=== PATIENT | female | born 1955 | race Caucasian/White ===

== ENCOUNTER → 2016-12-28 | Outpatient (CLI) | payer OTHER ==
[~2016-12-28] MED LIST: ASPIRIN81 M1 PO; ATORVASTATIN CA20 M1 PO; BENADRYL ALLERG25 M5 PO; FLUTICASON0.05 MG/AC NAS; OMEPRAZOLE D/R20 MG PO; OSPHENA60 M1 PO; PERCOCET 325 MG1 TA5 PO; VENLAFAXINE HYD75 M3 PO; ZOFRAN4 MG PO
[2016-12-28 15:56] LABS: BILIRUBIN NEGATIVE (NEGATIVE); BLOOD TRACE-INTACT (NEGATIVE); CLARITY CLEAR (CLEAR); COLOR YELLOW (YELLOW); GLUCOSE NEGATIVE (NEGATIVE); KETONE NEGATIVE (NEGATIVE); LEUKO ESTERASE NEGATIVE (NEGATIVE); NITRITE NEGATIVE (NEGATIVE); PH 5.5 (5.0-9.0); SPECIFIC GRAVITY <= 1.005 (1.005-1.030); UROBILINOGEN 0.2 E.U./dl (0.2-1.0)
[2016-12-28 15:57] LABS: BASO # 0.1 10*3/uL (0.0-0.1); BASO % 0.8 % (0.0-1.0); EOS # 0.1 10*3/uL (0.0-0.4); EOS % 1.2 % (1.0-4.0); HEMATOCRIT 37.2 % (37.0-47.0); HEMOGLOBIN 11.6 g/dl (12.0-16.0); LYMPH # 3.2 10*3/uL (1.3-4.4); LYMPH % 38.1 % (27.0-41.0); MEAN CELL VOLUME 89.6 fl (81.0-99.0); MEAN CORPUSCULAR HGB CONC 31.2 g/dl (33.0-37.0); MEAN PLATELET VOLUME 10.6 fl (9.6-12.3); MONO # 0.9 10*3/uL (0.1-1.0); MONO % 11.3 % (3.0-9.0); NEUT % 48.5 % (47.0-73.0); PLATELET COUNT AUTOMATED 364 10*3/uL (130-400); RED BLOOD COUNT 4.15 10*6/uL (4.10-5.10); RED CELL DISTRI WIDTH 15.9 % (0-14.5); WHITE BLOOD COUNT 8.3 10*3/uL (4.8-10.8)
[2016-12-28 16:06] LABS: BACTERIA 1+; RBC 0-2 rbc/hpf (0-2)
[2016-12-28 16:28] LABS: ALBUMIN 3.7 gm/dl (3.1-4.5); BUN 10 mg/dl (7-24); CHLORIDE 104 mmol/L (98-107); CHOLESTEROL 192 mg/dL (<200); CREATININE 0.81 mg/dL (0.55-1.02); GAMMA GLUTAMYL TRANSPEPTIDASE 27 U/L (5-55); SGOT/AST 28 IU/L (3-35); SGPT/ALT 22 U/L (12-78); SODIUM 137 mmol/L (136-145); TOTAL PROTEIN 7.3 gm/dL (6.4-8.2); TRIGLYCERIDES 125 mg/dl (<150); VLDL CHOLESTEROL 25 mg/dL (6-40)
[2016-12-28 16:34] LABS: VITAMIN D, 25-HYDROXY 18.8 ng/mL (30-100)
[2016-12-28 16:35] LABS: ALKALINE PHOSPHATASE 107 U/L (45-117); CPK 256 U/L (26-192); HDL CHOLESTEROL 44 mg/dl (40-60); LDL CHOLESTEROL 123 mg/dL (9-159); THYROID STIM HORMONE (HS) 0.923 uIU/ml (0.358-4.75)
== END | disposition home or self-care (01) ==
LOC: LAB 15:07
PROVIDERS: Family Medicine
DX: R53.83 Other fatigue (principal); R79.89 Other specified abnormal findings of blood chemistry; E55.9 Vitamin D deficiency, unspecified

== ENCOUNTER → 2017-10-02 | Outpatient (CLI) | payer OTHER ==
[2017-10-02 13:14] LABS: BILIRUBIN NEGATIVE (NEGATIVE); BLOOD TRACE-INTACT (NEGATIVE); CLARITY CLEAR (CLEAR); COLOR YELLOW (YELLOW); GLUCOSE NEGATIVE (NEGATIVE); KETONE NEGATIVE (NEGATIVE); LEUKO ESTERASE NEGATIVE (NEGATIVE); NITRITE NEGATIVE (NEGATIVE); SPECIFIC GRAVITY <= 1.005 (1.005-1.030); UROBILINOGEN 0.2 E.U./dl (0.2-1.0)
[2017-10-02 13:16] LABS: BASO # 0.1 10*3/uL (0.0-0.1); BASO % 0.8 % (0.0-1.0); EOS # 0.1 10*3/uL (0.0-0.4); EOS % 1.1 % (1.0-4.0); HEMATOCRIT 37.6 % (37.0-47.0); HEMOGLOBIN 11.6 g/dl (12.0-16.0); LYMPH % 33.4 % (27.0-41.0); MEAN CELL VOLUME 88.3 fl (81.0-99.0); MEAN CORPUSCULAR HGB 27.2 pg (27.0-31.0); MEAN CORPUSCULAR HGB CONC 30.9 g/dl (33.0-37.0); MEAN PLATELET VOLUME 10.9 fl (9.6-12.3); MONO % 10.8 % (3.0-9.0); NEUT # 4.8 10*3/uL (2.3-7.9); NEUT % 53.6 % (47.0-73.0); PLATELET COUNT AUTOMATED 361 10*3/uL (130-400); RED BLOOD COUNT 4.26 10*6/uL (4.10-5.10); RED CELL DISTRI WIDTH 17.2 % (0-14.5); WHITE BLOOD COUNT 8.9 10*3/uL (4.8-10.8)
[2017-10-02 13:21] LABS: BACTERIA 1+
[2017-10-02 13:47] LABS: ALBUMIN 3.7 gm/dl (3.1-4.5); ALKALINE PHOSPHATASE 105 U/L (45-117); BUN 9 mg/dl (7-24); CHLORIDE 108 mmol/L (98-107); CHOLESTEROL 190 mg/dL (<200); CPK 138 U/L (26-192); CREATININE 0.75 mg/dL (0.55-1.02); GAMMA GLUTAMYL TRANSPEPTIDASE 21 U/L (5-55); HDL CHOLESTEROL 38 mg/dl (40-60); LDL CHOLESTEROL 117 mg/dL (9-159); POTASSIUM 3.6 mmol/L (3.5-5.1); SGOT/AST 22 IU/L (3-35); SGPT/ALT 20 U/L (12-78); SODIUM 140 mmol/L (136-145); TOTAL PROTEIN 7.3 gm/dL (6.4-8.2); TRIGLYCERIDES 174 mg/dl (<150); VLDL CHOLESTEROL 35 mg/dL (6-40)
== END | disposition home or self-care (01) ==
LOC: LAB 12:39
PROVIDERS: Family Medicine
DX: R53.83 Other fatigue (principal); E78.00 Pure hypercholesterolemia, unspecified; R79.89 Other specified abnormal findings of blood chemistry

== ENCOUNTER → 2018-04-15 | Outpatient (CLI) | payer OTHER ==
[2018-04-15 14:34] LABS: BASO # 0.1 10*3/uL (0.0-0.1); BASO % 0.6 % (0.0-1.0); EOS # 0.1 10*3/uL (0.0-0.4); EOS % 0.9 % (1.0-4.0); HEMATOCRIT 35.5 % (37.0-47.0); LYMPH # 2.7 10*3/uL (1.3-4.4); LYMPH % 31.2 % (27.0-41.0); MEAN CELL VOLUME 85.3 fl (81.0-99.0); MEAN CORPUSCULAR HGB 26.4 pg (27.0-31.0); MEAN PLATELET VOLUME 10.9 fl (9.6-12.3); MONO # 0.9 10*3/uL (0.1-1.0); PLATELET COUNT AUTOMATED 364 10*3/uL (130-400); RED BLOOD COUNT 4.16 10*6/uL (4.10-5.10); RED CELL DISTRI WIDTH 18.1 % (0-14.5); RETICULOCYTE % 1.52 % (0.50-2.50); WHITE BLOOD COUNT 8.7 10*3/uL (4.8-10.8)
[2018-04-15 14:58] LABS: ALBUMIN 3.8 gm/dl (3.1-4.5); ALKALINE PHOSPHATASE 99 U/L (45-117); BUN 4 mg/dl (7-24); CHLORIDE 108 mmol/L (98-107); CHOLESTEROL 183 mg/dL (<200); GAMMA GLUTAMYL TRANSPEPTIDASE 21 U/L (5-55); HDL CHOLESTEROL 45 mg/dl (40-60); IRON 22 ug/dL (50-170); LDL CHOLESTEROL 109 mg/dL (9-159); POTASSIUM 3.5 mmol/L (3.5-5.1); SGOT/AST 21 IU/L (3-35); SGPT/ALT 22 U/L (12-78); SODIUM 142 mmol/L (136-145); T3 UPTAKE 34 % (31-39); THYROXINE (T4) TOTAL 7.5 ug/dl (4.8-13.9); TOTAL PROTEIN 7.3 gm/dL (6.4-8.2); TRIGLYCERIDES 146 mg/dl (<150); VLDL CHOLESTEROL 29 mg/dL (6-40)
[2018-04-15 15:05] LABS: CPK 141 U/L (26-192); VITAMIN D, 25-HYDROXY 11.2 ng/mL (30-100)
[2018-04-15 15:06] LABS: FERRITIN 6.2 ng/mL (10.0-291.0)
[2018-04-15 16:06] LABS: BILIRUBIN NEGATIVE (NEGATIVE); BLOOD NEGATIVE (NEGATIVE); CLARITY CLEAR (CLEAR); COLOR YELLOW (YELLOW); GLUCOSE NEGATIVE (NEGATIVE); KETONE NEGATIVE (NEGATIVE); LEUKO ESTERASE NEGATIVE (NEGATIVE); NITRITE NEGATIVE (NEGATIVE); SPECIFIC GRAVITY <= 1.005 (1.005-1.030); UROBILINOGEN 0.2 E.U./dl (0.2-1.0)
[2018-04-15 16:19] LABS: BACTERIA 1+
[2018-04-15 16:20] LABS: WBC 0-2 wbc/hpf (0-5)
== END | disposition home or self-care (01) ==
LOC: LAB 13:33
PROVIDERS: Family Medicine
DX: R79.89 Other specified abnormal findings of blood chemistry (principal); R53.83 Other fatigue

== ENCOUNTER → 2018-10-25 | Outpatient (CLI) | payer OTHER ==
[2018-10-25 11:17] LABS: BILIRUBIN NEGATIVE (NEGATIVE); BLOOD TRACE-LYSED (NEGATIVE); CLARITY CLEAR (CLEAR); COLOR YELLOW (YELLOW); GLUCOSE NEGATIVE (NEGATIVE); KETONE NEGATIVE (NEGATIVE); LEUKO ESTERASE NEGATIVE (NEGATIVE); NITRITE NEGATIVE (NEGATIVE); PH 7.5 (5.0-9.0); SPECIFIC GRAVITY <= 1.005 (1.005-1.030); UROBILINOGEN 0.2 E.U./dl (0.2-1.0)
[2018-10-25 11:21] LABS: BASO # 0.1 10*3/uL (0.0-0.1); BASO % 0.8 % (0.0-1.0); EOS # 0.1 10*3/uL (0.0-0.4); EOS % 1.2 % (1.0-4.0); HEMATOCRIT 33.9 % (37.0-47.0); HEMOGLOBIN 10.4 g/dl (12.0-16.0); LYMPH # 2.4 10*3/uL (1.3-4.4); LYMPH % 27.9 % (27.0-41.0); MEAN CELL VOLUME 83.9 fl (81.0-99.0); MEAN CORPUSCULAR HGB 25.7 pg (27.0-31.0); MEAN CORPUSCULAR HGB CONC 30.7 g/dl (33.0-37.0); MEAN PLATELET VOLUME 10.8 fl (9.6-12.3); MONO # 0.9 10*3/uL (0.1-1.0); MONO % 10.1 % (3.0-9.0); NEUT # 5.2 10*3/uL (2.3-7.9); NEUT % 59.8 % (47.0-73.0); PLATELET COUNT AUTOMATED 384 10*3/uL (130-400); RED BLOOD COUNT 4.04 10*6/uL (4.10-5.10); RED CELL DISTRI WIDTH 18.9 % (0-14.5); RETICULOCYTE % 1.55 % (0.50-2.50); WHITE BLOOD COUNT 8.6 10*3/uL (4.8-10.8)
[2018-10-25 11:32] LABS: BACTERIA 1+; WBC 0-2 wbc/hpf (0-5)
[2018-10-25 11:46] LABS: ALBUMIN 3.7 gm/dl (3.1-4.5); ALKALINE PHOSPHATASE 104 U/L (45-117); BUN 10 mg/dl (7-24); CHLORIDE 109 mmol/L (98-107); CHOLESTEROL 162 mg/dL (<200); CPK 224 U/L (26-192); CREATININE 0.62 mg/dL (0.55-1.02); GAMMA GLUTAMYL TRANSPEPTIDASE 21 U/L (5-55); HDL CHOLESTEROL 42 mg/dl (40-60); IRON 16 ug/dL (50-170); LDL CHOLESTEROL 96 mg/dL (9-159); POTASSIUM 3.4 mmol/L (3.5-5.1); SGOT/AST 26 IU/L (3-35); SGPT/ALT 25 U/L (12-78); SODIUM 141 mmol/L (136-145); TOTAL PROTEIN 7.2 gm/dL (6.4-8.2); TRIGLYCERIDES 121 mg/dl (<150); VLDL CHOLESTEROL 24 mg/dL (6-40)
[2018-10-25 13:12] LABS: VITAMIN D, 25-HYDROXY 13.7 ng/mL (30-100)
[2018-10-25 13:13] LABS: FERRITIN 4.1 ng/mL (10.0-291.0)
== END | disposition home or self-care (01) ==
LOC: LAB 10:40
PROVIDERS: Family Medicine
DX: E78.5 Hyperlipidemia, unspecified (principal); R79.89 Other specified abnormal findings of blood chemistry; R53.83 Other fatigue; R74.8 Abnormal levels of other serum enzymes

== ENCOUNTER → 2019-04-23 | Outpatient (CLI) | payer OTHER ==
[~2019-04-23] MED LIST changes: +ATORVASTATIN CA40 M1 PO; +CALCITONIN-SAL3.7 ML NAS; +CARVEDILOL3.125 MG PO; +CYCLOBENZAPRINE10 MG PO; -OMEPRAZOLE D/R20 MG PO; +OMEPRAZOLE20 M2 PO
[2019-04-23 10:41] LABS: BASO # 0.1 10*3/uL (0.0-0.1); BASO % 0.8 % (0.0-1.0); EOS # 0.1 10*3/uL (0.0-0.4); EOS % 1.6 % (1.0-4.0); HEMATOCRIT 33.3 % (37.0-47.0); HEMOGLOBIN 9.5 g/dl (12.0-16.0); LYMPH # 2.2 10*3/uL (1.3-4.4); LYMPH % 25.1 % (27.0-41.0); MEAN CELL VOLUME 76.6 fl (81.0-99.0); MEAN CORPUSCULAR HGB 21.8 pg (27.0-31.0); MEAN CORPUSCULAR HGB CONC 28.5 g/dl (33.0-37.0); MONO % 11.1 % (3.0-9.0); NEUT # 5.4 10*3/uL (2.3-7.9); NEUT % 61.2 % (47.0-73.0); PLATELET COUNT AUTOMATED 499 10*3/uL (130-400); RED BLOOD COUNT 4.35 10*6/uL (4.10-5.10); RED CELL DISTRI WIDTH 19.7 % (0-14.5); RETICULOCYTE % 1.42 % (0.50-2.50); WHITE BLOOD COUNT 8.8 10*3/uL (4.8-10.8)
[2019-04-23 10:48] LABS: BILIRUBIN NEGATIVE (NEGATIVE); CLARITY SL CLOUDY (CLEAR); COLOR YELLOW (YELLOW); GLUCOSE NEGATIVE (NEGATIVE); KETONE NEGATIVE (NEGATIVE)
[2019-04-23 10:49] LABS: BLOOD TRACE-INTACT (NEGATIVE); LEUKO ESTERASE NEGATIVE (NEGATIVE); NITRITE NEGATIVE (NEGATIVE); PH 7.5 (5.0-9.0); SPECIFIC GRAVITY 1.005 (1.005-1.030); UROBILINOGEN 0.2 E.U./dl (0.2-1.0)
[2019-04-23 11:14] LABS: ALBUMIN 3.8 gm/dl (3.1-4.5); ALKALINE PHOSPHATASE 103 U/L (45-117); BUN 8 mg/dl (7-24); CHLORIDE 109 mmol/L (98-107); CHOLESTEROL 186 mg/dL (<200); GAMMA GLUTAMYL TRANSPEPTIDASE 29 U/L (5-55); IRON 24 ug/dL (50-170); POTASSIUM 3.7 mmol/L (3.5-5.1); SGOT/AST 22 IU/L (3-35); SGPT/ALT 25 U/L (12-78); SODIUM 141 mmol/L (136-145); T3 UPTAKE 32 % (31-39); TOTAL IRON BINDING CAPACITY 456 ug/dl (250-450); TOTAL PROTEIN 7.3 gm/dL (6.4-8.2); TRIGLYCERIDES 128 mg/dl (<150); VLDL CHOLESTEROL 26 mg/dL (6-40)
[2019-04-23 11:20] LABS: HDL CHOLESTEROL 52 mg/dl (40-60); LDL CHOLESTEROL 108 mg/dL (9-159)
[2019-04-23 11:21] LABS: BACTERIA 2+; RBC 0-2 rbc/hpf (0-2); WBC 0-2 wbc/hpf (0-5)
[2019-04-23 11:35] LABS: FERRITIN 4.9 ng/mL (10.0-291.0)
== END | disposition home or self-care (01) ==
LOC: LAB 09:54
PROVIDERS: Family Medicine
DX: R79.89 Other specified abnormal findings of blood chemistry (principal); R53.83 Other fatigue; E55.9 Vitamin D deficiency, unspecified; R74.8 Abnormal levels of other serum enzymes

== ENCOUNTER → 2019-05-07 | Day surgery (SDC) | payer OTHER ==
[~2019-05-07] VITALS: Ht 157.4 cm; Wt 53.1 kg
[2019-05-07 12:33] VITALS: BP 173/84
[2019-05-07 13:08] VITALS: BP 173/84
[2019-05-07 13:23] VITALS: BP 127/73
[2019-05-07 13:32] VITALS: BP 124/74
== END | disposition home or self-care (01) ==
LOC: SDC 05-05 14:00
DX: D64.9 Anemia, unspecified (principal); K44.9 Diaphragmatic hernia without obstruction or gangrene; K29.50 Unspecified chronic gastritis without bleeding; K21.9 Gastro-esophageal reflux disease without esophagitis; E78.5 Hyperlipidemia, unspecified; F32.9 Major depressive disorder, single episode, unspecified; I10 Essential (primary) hypertension; F41.9 Anxiety disorder, unspecified; Z79.899 Other long term (current) drug therapy; Z72.89 Other problems related to lifestyle; Z98.890 Other specified postprocedural states

== ENCOUNTER → 2019-05-14 | Outpatient (CLI) | payer OTHER | END | disposition home or self-care (01) | LOC: CT 07:51 | DX: D64.9 Anemia, unspecified (principal); Z90.710 Acquired absence of both cervix and uterus ==

== ENCOUNTER → 2019-07-16 | Outpatient (CLI) | payer OTHER ==
[2019-07-16 11:26] LABS: BASO # 0.1 10*3/uL (0.0-0.1); BASO % 0.9 % (0.0-1.0); EOS # 0.1 10*3/uL (0.0-0.4); EOS % 1.7 % (1.0-4.0); LYMPH # 2.6 10*3/uL (1.3-4.4); LYMPH % 31.8 % (27.0-41.0); MEAN CELL VOLUME 86.9 fl (81.0-99.0); MEAN CORPUSCULAR HGB 26.6 pg (27.0-31.0); MEAN CORPUSCULAR HGB CONC 30.7 g/dl (33.0-37.0); MEAN PLATELET VOLUME 10.4 fl (9.6-12.3); MONO % 12.2 % (3.0-9.0); NEUT # 4.3 10*3/uL (2.3-7.9); PLATELET COUNT AUTOMATED 315 10*3/uL (130-400); RED BLOOD COUNT 5.18 10*6/uL (4.10-5.10); RED CELL DISTRI WIDTH 24.8 % (0-14.5); RETICULOCYTE % 1.16 % (0.50-2.50); WHITE BLOOD COUNT 8.1 10*3/uL (4.8-10.8)
[2019-07-16 11:43] LABS: ALBUMIN 3.9 gm/dl (3.1-4.5); ALKALINE PHOSPHATASE 104 U/L (45-117); BUN 10 mg/dl (7-24); CHLORIDE 106 mmol/L (98-107); CHOLESTEROL 188 mg/dL (<200); GAMMA GLUTAMYL TRANSPEPTIDASE 34 U/L (5-55); HDL CHOLESTEROL 35 mg/dl (40-60); LDL CHOLESTEROL 100 mg/dL (9-159); POTASSIUM 4.5 mmol/L (3.5-5.1); SGOT/AST 27 IU/L (3-35); SGPT/ALT 36 U/L (12-78); SODIUM 138 mmol/L (136-145); TOTAL PROTEIN 7.7 gm/dL (6.4-8.2); TRIGLYCERIDES 266 mg/dl (<150); VLDL CHOLESTEROL 53 mg/dL (6-40)
[2019-07-16 11:50] LABS: CPK 98 U/L (26-192); CREATININE 0.76 mg/dL (0.55-1.02); IRON 57 ug/dL (50-170); TOTAL IRON BINDING CAPACITY 411 ug/dl (250-450)
[2019-07-16 12:13] LABS: BILIRUBIN NEGATIVE (NEGATIVE); BLOOD TRACE-INTACT (NEGATIVE); CLARITY CLEAR (CLEAR); COLOR YELLOW (YELLOW); GLUCOSE NEGATIVE (NEGATIVE); KETONE NEGATIVE (NEGATIVE); PH 7.5 (5.0-9.0); SPECIFIC GRAVITY 1.005 (1.005-1.030)
[2019-07-16 12:14] LABS: LEUKO ESTERASE NEGATIVE (NEGATIVE); NITRITE NEGATIVE (NEGATIVE); UROBILINOGEN 0.2 E.U./dl (0.2-1.0)
[2019-07-16 12:16] LABS: BACTERIA TRACE
== END | disposition home or self-care (01) ==
LOC: LAB 10:44
PROVIDERS: Family Medicine
DX: R53.83 Other fatigue (principal); R79.89 Other specified abnormal findings of blood chemistry; E55.9 Vitamin D deficiency, unspecified

== ENCOUNTER → 2019-10-24 | Outpatient (CLI) | payer MEDICARE, OTHER ==
[2019-10-24 11:38] LABS: BUN 10 mg/dl (7-24); CREATININE 0.79 mg/dL (0.55-1.02)
== END | disposition home or self-care (01) ==
LOC: LAB 11:12
PROVIDERS: Family Medicine
DX: E27.9 Disorder of adrenal gland, unspecified (principal)

== ENCOUNTER → 2019-10-27 | Outpatient (CLI) | payer MEDICARE, OTHER | END | disposition home or self-care (01) | LOC: CT 03:14 | DX: D35.01 Benign neoplasm of right adrenal gland (principal); N28.1 Cyst of kidney, acquired ==

== ENCOUNTER → 2020-01-22 | Outpatient (CLI) | payer MEDICARE, OTHER ==
[2020-01-22 11:10] LABS: BASO % 0.6 % (0.0-1.0); EOS # 0.1 10*3/uL (0.0-0.4); EOS % 1.4 % (1.0-4.0); HEMATOCRIT 42.5 % (37.0-47.0); LYMPH # 1.9 10*3/uL (1.3-4.4); LYMPH % 27.7 % (27.0-41.0); MEAN CELL VOLUME 98.2 fl (81.0-99.0); MEAN CORPUSCULAR HGB 30.5 pg (27.0-31.0); MEAN CORPUSCULAR HGB CONC 31.1 g/dl (33.0-37.0); MEAN PLATELET VOLUME 10.5 fl (9.6-12.3); MONO # 0.7 10*3/uL (0.1-1.0); MONO % 10.6 % (3.0-9.0); NEUT # 4.2 10*3/uL (2.3-7.9); NEUT % 59.6 % (47.0-73.0); PLATELET COUNT AUTOMATED 328 10*3/uL (130-400); RED BLOOD COUNT 4.33 10*6/uL (4.10-5.10); RED CELL DISTRI WIDTH 13.2 % (0-14.5)
[2020-01-22 11:11] LABS: BILIRUBIN Negative (Negative); BLOOD Negative (Negative); CLARITY Clear (Clear); COLOR Yellow (Yellow); GLUCOSE Negative (Negative); KETONE Negative (Negative); LEUKO ESTERASE Negative (Negative); NITRITE Negative (Negative); PH 7.5 (4.5-8.0); SPECIFIC GRAVITY <= 1.005 (1.001-1.030); UROBILINOGEN 0.2 E.U./dl (0.0-1.0)
[2020-01-22 11:39] LABS: ALBUMIN 3.7 gm/dl (3.1-4.5); BUN 9 mg/dl (7-24); CHLORIDE 107 mmol/L (98-107); CHOLESTEROL 195 mg/dL (<200); CREATININE 0.72 mg/dL (0.55-1.02); GAMMA GLUTAMYL TRANSPEPTIDASE 34 U/L (5-55); HDL CHOLESTEROL 42 mg/dl (40-60); IRON 95 ug/dL (50-170); LDL CHOLESTEROL 116 mg/dL (9-159); POTASSIUM 4.2 mmol/L (3.5-5.1); SGOT/AST 32 IU/L (3-35); SGPT/ALT 38 U/L (12-78); SODIUM 140 mmol/L (136-145); TOTAL IRON BINDING CAPACITY 375 ug/dl (250-450); TRIGLYCERIDES 184 mg/dl (<150); VLDL CHOLESTEROL 37 mg/dL (6-40)
[2020-01-22 11:47] LABS: ALKALINE PHOSPHATASE 111 U/L (45-117); CPK 104 U/L (26-192)
[2020-01-22 12:13] LABS: FERRITIN 13.4 ng/mL (10.0-291.0); VITAMIN D, 25-HYDROXY 28.5 ng/mL (30-100)
== END | disposition home or self-care (01) ==
LOC: LAB 10:38
PROVIDERS: ATTEND Family Medicine
DX: E55.9 Vitamin D deficiency, unspecified (principal); R79.89 Other specified abnormal findings of blood chemistry; E78.5 Hyperlipidemia, unspecified

== ENCOUNTER → 2020-08-05 | Outpatient (CLI) | payer MEDICARE, OTHER ==
[2020-08-05 16:26] LABS: BASO # 0.1 10*3/uL (0.0-0.1); BASO % 0.7 % (0.0-1.0); BILIRUBIN Negative (Negative); BLOOD Negative (Negative); CLARITY Clear (Clear); COLOR Yellow (Yellow); EOS # 0.1 10*3/uL (0.0-0.4); EOS % 1.4 % (1.0-4.0); GLUCOSE Negative (Negative); HEMATOCRIT 39.6 % (37.0-47.0); KETONE Negative (Negative); LEUKO ESTERASE Negative (Negative); LYMPH # 2.8 10*3/uL (1.3-4.4); LYMPH % 30.2 % (27.0-41.0); MEAN CELL VOLUME 91.5 fl (81.0-99.0); MEAN CORPUSCULAR HGB 28.4 pg (27.0-31.0); MEAN CORPUSCULAR HGB CONC 31.1 g/dl (33.0-37.0); MEAN PLATELET VOLUME 11.1 fl (9.6-12.3); MONO # 1.1 10*3/uL (0.1-1.0); MONO % 11.8 % (3.0-9.0); NEUT # 5.2 10*3/uL (2.3-7.9); NEUT % 55.7 % (47.0-73.0); NITRITE Negative (Negative); PLATELET COUNT AUTOMATED 394 10*3/uL (130-400); RED BLOOD COUNT 4.33 10*6/uL (4.10-5.10); RED CELL DISTRI WIDTH 15.6 % (0-14.5); RETICULOCYTE % 2.13 % (0.50-2.50); SPECIFIC GRAVITY <= 1.005 (1.001-1.030); UROBILINOGEN 0.2 E.U./dl (0.0-1.0); WHITE BLOOD COUNT 9.4 10*3/uL (4.8-10.8)
[2020-08-05 16:56] LABS: ALKALINE PHOSPHATASE 112 U/L (45-117); BUN 8 mg/dl (7-24); CHLORIDE 104 mmol/L (98-107); CHOLESTEROL 216 mg/dL (<200); CPK 110 U/L (26-192); CREATININE 0.74 mg/dL (0.55-1.02); GAMMA GLUTAMYL TRANSPEPTIDASE 33 U/L (5-55); IRON 61 ug/dL (50-170); LDL CHOLESTEROL 128 mg/dL (9-159); POTASSIUM 3.8 mmol/L (3.5-5.1); SGOT/AST 20 IU/L (3-35); SGPT/ALT 28 U/L (12-78); SODIUM 138 mmol/L (136-145); TOTAL IRON BINDING CAPACITY 436 ug/dl (250-450); TOTAL PROTEIN 7.6 gm/dL (6.4-8.2); TRIGLYCERIDES 236 mg/dl (<150)
[2020-08-05 19:05] LABS: BACTERIA TRACE; RBC 0-2 rbc/hpf (0-2); WBC 0-2 wbc/hpf (0-5)
== END | disposition home or self-care (01) ==
LOC: LAB 14:50
PROVIDERS: ATTEND Family Medicine
DX: E78.5 Hyperlipidemia, unspecified (principal); R53.83 Other fatigue; R79.89 Other specified abnormal findings of blood chemistry

== ENCOUNTER → 2020-09-24 | Outpatient (CLI) | payer MEDICARE, OTHER ==
[2020-09-24 13:55] LABS: ALBUMIN 3.8 gm/dl (3.1-4.5); BILIRUBIN, DIRECT 0.2 mg/dL (0.0-0.2); TOTAL PROTEIN 7.7 gm/dL (6.4-8.2)
== END | disposition home or self-care (01) ==
LOC: LAB 12:39
PROVIDERS: ATTEND Family Medicine
DX: E78.5 Hyperlipidemia, unspecified (principal); R53.83 Other fatigue; R79.89 Other specified abnormal findings of blood chemistry

== ENCOUNTER → 2021-04-25 | Outpatient (CLI) | payer MEDICARE, OTHER ==
[2021-04-25 13:12] LABS: BASO # 0.1 10*3/uL (0.0-0.1); BASO % 0.7 % (0.0-1.0); EOS # 0.1 10*3/uL (0.0-0.4); EOS % 1.6 % (1.0-4.0); HEMATOCRIT 34.9 % (37.0-47.0); LYMPH # 2.5 10*3/uL (1.3-4.4); LYMPH % 27.9 % (27.0-41.0); MEAN CELL VOLUME 82.5 fl (81.0-99.0); MEAN CORPUSCULAR HGB 24.8 pg (27.0-31.0); MEAN CORPUSCULAR HGB CONC 30.1 g/dl (33.0-37.0); MEAN PLATELET VOLUME 10.1 fl (9.6-12.3); MONO # 0.9 10*3/uL (0.1-1.0); MONO % 9.8 % (3.0-9.0); NEUT # 5.3 10*3/uL (2.3-7.9); NEUT % 59.8 % (47.0-73.0); PLATELET COUNT AUTOMATED 435 10*3/uL (130-400); RED BLOOD COUNT 4.23 10*6/uL (4.10-5.10); RED CELL DISTRI WIDTH 17.3 % (0-14.5); RETICULOCYTE % 1.47 % (0.50-2.50); WHITE BLOOD COUNT 8.8 10*3/uL (4.8-10.8)
[2021-04-25 13:22] LABS: BILIRUBIN Negative (Negative); BLOOD Trace-Lysed (Negative); CLARITY Clear (Clear); COLOR Yellow (Yellow); GLUCOSE Negative (Negative); KETONE Negative (Negative); LEUKO ESTERASE Trace (Negative); NITRITE Negative (Negative); SPECIFIC GRAVITY <= 1.005 (1.001-1.030); UROBILINOGEN 0.2 E.U./dl (0.0-1.0)
[2021-04-25 13:36] LABS: ALBUMIN 3.6 gm/dl (3.1-4.5); ALKALINE PHOSPHATASE 93 U/L (45-117); BUN 11 mg/dl (7-24); CHLORIDE 108 mmol/L (98-107); CHOLESTEROL 205 mg/dL (<200); CREATININE 0.81 mg/dL (0.55-1.02); GAMMA GLUTAMYL TRANSPEPTIDASE 29 U/L (5-55); IRON 26 ug/dL (50-170); LDL CHOLESTEROL 110 mg/dL (9-159); SGOT/AST 15 IU/L (3-35); SGPT/ALT 22 U/L (12-78); SODIUM 140 mmol/L (136-145); TOTAL IRON BINDING CAPACITY 417 ug/dl (250-450); TOTAL PROTEIN 7.2 gm/dL (6.4-8.2); TRIGLYCERIDES 266 mg/dl (<150)
[2021-04-25 14:07] LABS: FERRITIN 4.3 ng/mL (10.0-291.0); VITAMIN D, 25-HYDROXY 18.4 ng/mL (30-100)
[2021-04-25 14:54] LABS: BACTERIA TRACE
== END | disposition home or self-care (01) ==
LOC: LAB 12:27
PROVIDERS: ATTEND Family Medicine
DX: E55.9 Vitamin D deficiency, unspecified (principal); E78.5 Hyperlipidemia, unspecified; R79.89 Other specified abnormal findings of blood chemistry; R53.83 Other fatigue; R74.8 Abnormal levels of other serum enzymes

== ENCOUNTER → 2021-06-08 | Outpatient (CLI) | payer MEDICARE, OTHER ==
[2021-06-08 13:13] LABS: BASO # 0.1 10*3/uL (0.0-0.1); BASO % 0.8 % (0.0-1.0); EOS # 0.1 10*3/uL (0.0-0.4); EOS % 1.5 % (1.0-4.0); HEMATOCRIT 37.2 % (37.0-47.0); LYMPH # 2.4 10*3/uL (1.3-4.4); LYMPH % 32.5 % (27.0-41.0); MEAN CELL VOLUME 83.2 fl (81.0-99.0); MEAN CORPUSCULAR HGB 25.5 pg (27.0-31.0); MEAN CORPUSCULAR HGB CONC 30.6 g/dl (33.0-37.0); MEAN PLATELET VOLUME 10.3 fl (9.6-12.3); MONO % 13.2 % (3.0-9.0); NEUT # 3.8 10*3/uL (2.3-7.9); NEUT % 51.6 % (47.0-73.0); PLATELET COUNT AUTOMATED 405 10*3/uL (130-400); RED BLOOD COUNT 4.47 10*6/uL (4.10-5.10); RED CELL DISTRI WIDTH 18.4 % (0-14.5); RETICULOCYTE % 1.52 % (0.50-2.50); WHITE BLOOD COUNT 7.4 10*3/uL (4.8-10.8)
[2021-06-08 13:28] LABS: BUN 12 mg/dl (7-24); CHLORIDE 108 mmol/L (98-107); CREATININE 0.65 mg/dL (0.55-1.02); GAMMA GLUTAMYL TRANSPEPTIDASE 28 U/L (5-55); IRON 37 ug/dL (50-170); POTASSIUM 4.4 mmol/L (3.5-5.1); SGOT/AST 25 IU/L (3-35); SGPT/ALT 25 U/L (12-78); SODIUM 138 mmol/L (136-145)
[2021-06-08 13:33] LABS: ALKALINE PHOSPHATASE 90 U/L (45-117); CHOLESTEROL 203 mg/dL (<200); CPK 141 U/L (26-192); LDL CHOLESTEROL 126 mg/dL (9-159); TOTAL IRON BINDING CAPACITY 465 ug/dl (250-450); TOTAL PROTEIN 7.5 gm/dL (6.4-8.2); TRIGLYCERIDES 171 mg/dl (<150)
== END | disposition home or self-care (01) ==
LOC: LAB 11:54
PROVIDERS: ATTEND Family Medicine
DX: E78.5 Hyperlipidemia, unspecified (principal); R79.89 Other specified abnormal findings of blood chemistry; R53.83 Other fatigue

== ENCOUNTER → 2022-01-25 | Outpatient (CLI) | payer MEDICARE, OTHER ==
[2022-01-25 12:25] LABS: BASO # 0.1 10*3/uL (0.0-0.1); BASO % 0.9 % (0.0-1.0); EOS # 0.1 10*3/uL (0.0-0.4); EOS % 1.3 % (1.0-4.0); HEMATOCRIT 37.4 % (37.0-47.0); LYMPH # 2.7 10*3/uL (1.3-4.4); LYMPH % 35.2 % (27.0-41.0); MEAN CELL VOLUME 86.8 fl (81.0-99.0); MEAN CORPUSCULAR HGB 26.2 pg (27.0-31.0); MEAN CORPUSCULAR HGB CONC 30.2 g/dl (33.0-37.0); MEAN PLATELET VOLUME 10.6 fl (9.6-12.3); MONO # 0.9 10*3/uL (0.1-1.0); MONO % 11.9 % (3.0-9.0); NEUT # 3.8 10*3/uL (2.3-7.9); NEUT % 50.3 % (47.0-73.0); PLATELET COUNT AUTOMATED 424 10*3/uL (130-400); RED BLOOD COUNT 4.31 10*6/uL (4.10-5.10); RED CELL DISTRI WIDTH 15.9 % (0-14.5); RETICULOCYTE % 1.69 % (0.50-2.50); WHITE BLOOD COUNT 7.6 10*3/uL (4.8-10.8)
[2022-01-25 12:28] LABS: BILIRUBIN Negative (Negative); BLOOD Negative (Negative); CLARITY Clear (Clear); COLOR Yellow (Yellow); GLUCOSE Negative (Negative); KETONE Negative (Negative); LEUKO ESTERASE Negative (Negative); NITRITE Negative (Negative); PH 6.5 (4.5-8.0); UROBILINOGEN 0.2 E.U./dl (0.0-1.0)
[2022-01-25 12:40] LABS: ALKALINE PHOSPHATASE 100 U/L (45-117); BUN 8 mg/dl (7-24); CHLORIDE 108 mmol/L (98-107); CHOLESTEROL 153 mg/dL (<200); CREATININE 0.67 mg/dL (0.55-1.02); GAMMA GLUTAMYL TRANSPEPTIDASE 23 U/L (5-55); IRON 27 ug/dL (50-170); LDL CHOLESTEROL 82 mg/dL (9-159); POTASSIUM 4.1 mmol/L (3.5-5.1); SGOT/AST 23 IU/L (3-35); SGPT/ALT 22 U/L (12-78); SODIUM 141 mmol/L (136-145); TOTAL PROTEIN 7.8 gm/dL (6.4-8.2); TRIGLYCERIDES 143 mg/dl (<150)
[2022-01-25 12:42] LABS: CPK 96 U/L (26-192)
[2022-01-25 12:59] LABS: FERRITIN 4.2 ng/mL (10.0-291.0)
[2022-01-25 13:01] LABS: RBC 0-2 rbc/hpf (0-2); WBC 0-2 wbc/hpf (0-5)
[2022-01-25 13:02] LABS: EPITHELIAL CELLS 0-2
== END | disposition home or self-care (01) ==
LOC: LAB 11:54
PROVIDERS: ATTEND Family Medicine
DX: E78.5 Hyperlipidemia, unspecified (principal); E55.9 Vitamin D deficiency, unspecified; R79.89 Other specified abnormal findings of blood chemistry; R53.83 Other fatigue; R74.8 Abnormal levels of other serum enzymes

== ENCOUNTER → 2022-07-14 | Outpatient (CLI) | payer MEDICARE, OTHER | END | disposition home or self-care (01) | LOC: RAD 11:02 | PROVIDERS: ATTEND Family Medicine | DX: M17.12 Unilateral primary osteoarthritis, left knee (principal); M25.462 Effusion, left knee; M25.762 Osteophyte, left knee; M25.862 Other specified joint disorders, left knee ==

== ENCOUNTER → 2022-07-31 | Outpatient (CLI) | payer MEDICARE, OTHER | END | disposition home or self-care (01) | LOC: MRI 01:17 | PROVIDERS: ATTEND Family Medicine | DX: M17.12 Unilateral primary osteoarthritis, left knee (principal); M25.462 Effusion, left knee; M65.862 Other synovitis and tenosynovitis, left lower leg; M23.42 Loose body in knee, left knee ==

== ENCOUNTER → 2022-08-02 | Outpatient (CLI) | payer MEDICARE, OTHER ==
[2022-08-02 11:40] LABS: BASO # 0.1 10*3/uL (0.0-0.1); BASO % 0.6 % (0.0-1.0); EOS # 0.1 10*3/uL (0.0-0.4); EOS % 0.8 % (1.0-4.0); HEMATOCRIT 39.4 % (37.0-47.0); LYMPH # 2.2 10*3/uL (1.3-4.4); LYMPH % 25.8 % (27.0-41.0); MEAN CELL VOLUME 87.2 fl (81.0-99.0); MEAN CORPUSCULAR HGB 27.9 pg (27.0-31.0); MEAN PLATELET VOLUME 10.8 fl (9.6-12.3); MONO % 11.8 % (3.0-9.0); NEUT # 5.1 10*3/uL (2.3-7.9); NEUT % 60.8 % (47.0-73.0); PLATELET COUNT AUTOMATED 323 10*3/uL (130-400); RED BLOOD COUNT 4.52 10*6/uL (4.10-5.10); RED CELL DISTRI WIDTH 15.5 % (0-14.5); RETICULOCYTE % 1.24 % (0.50-2.50); WHITE BLOOD COUNT 8.4 10*3/uL (4.8-10.8)
[2022-08-02 11:41] LABS: BILIRUBIN Negative (Negative); BLOOD Negative (Negative); CLARITY Clear (Clear); COLOR Yellow (Yellow); GLUCOSE Negative (Negative); KETONE Negative (Negative); LEUKO ESTERASE Negative (Negative); NITRITE Negative (Negative); SPECIFIC GRAVITY <= 1.005 (1.001-1.030); UROBILINOGEN 0.2 E.U./dl (0.0-1.0)
[2022-08-02 12:06] LABS: BACTERIA 1+; RBC 0-2 rbc/hpf (0-2); WBC 0-2 wbc/hpf (0-5)
[2022-08-02 12:10] LABS: ALKALINE PHOSPHATASE 76 U/L (46-116); BUN 10 mg/dl (9-23); CHLORIDE 102 mmol/L (98-107); CHOLESTEROL 128 mg/dL (<200); GAMMA GLUTAMYL TRANSPEPTIDASE 22 U/L (0-73); LDL CHOLESTEROL 63 mg/dL (9-159); POTASSIUM 4.1 mmol/L (3.4-5.1); SGPT/ALT 16 U/L (10-49); THYROID STIM HORMONE (HS) 1.538 uIU/ml (0.550-4.780); TOTAL PROTEIN 7.2 gm/dL (6.0-8.0); TRIGLYCERIDES 103 mg/dl (<150)
[2022-08-02 12:11] LABS: VITAMIN D, 25-HYDROXY 33.9 ng/mL (30-100)
== END | disposition home or self-care (01) ==
LOC: LAB 11:01
PROVIDERS: ATTEND Family Medicine
DX: R79.89 Other specified abnormal findings of blood chemistry (principal); R53.83 Other fatigue; E55.9 Vitamin D deficiency, unspecified; Z79.899 Other long term (current) drug therapy

== ENCOUNTER → 2023-02-07 | Outpatient (CLI) | payer MEDICARE, OTHER ==
[2023-02-07 12:17] LABS: BASO % 0.5 % (0.0-1.0); BILIRUBIN Negative (Negative); BLOOD Negative (Negative); CLARITY Clear (Clear); COLOR Yellow (Yellow); EOS # 0.1 10*3/uL (0.0-0.4); GLUCOSE Negative (Negative); HEMATOCRIT 42.5 % (37.0-47.0); KETONE Negative (Negative); LEUKO ESTERASE Negative (Negative); LYMPH # 2.5 10*3/uL (1.3-4.4); LYMPH % 28.2 % (27.0-41.0); MEAN CELL VOLUME 90.8 fl (81.0-99.0); MEAN CORPUSCULAR HGB 28.2 pg (27.0-31.0); MEAN CORPUSCULAR HGB CONC 31.1 g/dl (33.0-37.0); MEAN PLATELET VOLUME 10.7 fl (9.6-12.3); MONO # 0.9 10*3/uL (0.1-1.0); MONO % 10.4 % (3.0-9.0); NEUT # 5.2 10*3/uL (2.3-7.9); NEUT % 59.7 % (47.0-73.0); NITRITE Negative (Negative); PLATELET COUNT AUTOMATED 310 10*3/uL (130-400); RED BLOOD COUNT 4.68 10*6/uL (4.10-5.10); RED CELL DISTRI WIDTH 16.2 % (0-14.5); RETICULOCYTE % 1.55 % (0.50-2.50); SPECIFIC GRAVITY <= 1.005 (1.001-1.030); UROBILINOGEN 0.2 E.U./dl (0.0-1.0); WHITE BLOOD COUNT 8.8 10*3/uL (4.8-10.8)
[2023-02-07 12:50] LABS: BACTERIA 1+; EPITHELIAL CELLS 0-2
[2023-02-07 12:51] LABS: ALKALINE PHOSPHATASE 86 U/L (46-116); BUN 10 mg/dl (9-23); CHLORIDE 107 mmol/L (98-107); CHOLESTEROL 186 mg/dL (<200); GAMMA GLUTAMYL TRANSPEPTIDASE 22 U/L (0-73); LDL CHOLESTEROL 102 mg/dL (9-159); POTASSIUM 3.6 mmol/L (3.4-5.1); SGPT/ALT 17 U/L (5-49); T3 UPTAKE 22.2 % (22.4-36.7); THYROXINE (T4) TOTAL 7.6 ug/dl (4.5-10.9); TOTAL PROTEIN 7.5 gm/dL (6.0-8.0); TRIGLYCERIDES 185 mg/dl (<150)
[2023-02-07 12:57] LABS: VITAMIN D, 25-HYDROXY 29.9 ng/mL (30-100)
== END | disposition home or self-care (01) ==
LOC: LAB 11:51
PROVIDERS: ATTEND Family Medicine
DX: E78.5 Hyperlipidemia, unspecified (principal); E55.9 Vitamin D deficiency, unspecified; R79.89 Other specified abnormal findings of blood chemistry; R53.83 Other fatigue; R74.8 Abnormal levels of other serum enzymes

== ENCOUNTER → 2023-03-01 | Outpatient (CLI) | payer MEDICARE, OTHER | END | disposition home or self-care (01) | LOC: CT 00:42 | PROVIDERS: ATTEND Family Medicine | DX: D35.00 Benign neoplasm of unspecified adrenal gland (principal); N28.1 Cyst of kidney, acquired; K76.0 Fatty (change of) liver, not elsewhere classified; K57.30 Diverticulosis of large intestine without perforation or abscess without bleeding; Z90.710 Acquired absence of both cervix and uterus; I70.0 Atherosclerosis of aorta; I70.8 Atherosclerosis of other arteries ==

== ENCOUNTER → 2023-03-28 | Outpatient (CLI) | payer MEDICARE, OTHER ==
[2023-03-28 14:10] LABS: TOTAL PROTEIN 7.1 gm/dL (6.0-8.0)
== END | disposition home or self-care (01) ==
LOC: LAB 13:25
PROVIDERS: ATTEND Family Medicine
DX: E78.5 Hyperlipidemia, unspecified (principal); R79.89 Other specified abnormal findings of blood chemistry; R53.83 Other fatigue

== ENCOUNTER → 2023-08-10 | Outpatient (CLI) | payer MEDICARE, OTHER ==
[2023-08-10 10:07] LABS: BASO % 0.5 % (0.0-1.0); EOS # 0.1 10*3/uL (0.0-0.4); EOS % 1.8 % (1.0-4.0); HEMATOCRIT 40.6 % (37.0-47.0); LYMPH # 2.2 10*3/uL (1.3-4.4); LYMPH % 30.4 % (27.0-41.0); MEAN CELL VOLUME 95.3 fl (81.0-99.0); MEAN CORPUSCULAR HGB 29.8 pg (27.0-31.0); MEAN CORPUSCULAR HGB CONC 31.3 g/dl (33.0-37.0); MEAN PLATELET VOLUME 10.2 fl (9.6-12.3); MONO # 0.9 10*3/uL (0.1-1.0); MONO % 11.7 % (3.0-9.0); NEUT # 4.1 10*3/uL (2.3-7.9); NEUT % 55.3 % (47.0-73.0); PLATELET COUNT AUTOMATED 299 10*3/uL (130-400); RED BLOOD COUNT 4.26 10*6/uL (4.10-5.10); RED CELL DISTRI WIDTH 15.1 % (0-14.5); RETICULOCYTE % 1.65 % (0.50-2.50); WHITE BLOOD COUNT 7.4 10*3/uL (4.8-10.8)
[2023-08-10 10:32] LABS: BILIRUBIN Negative (Negative); BLOOD Negative (Negative); CLARITY Clear (Clear); COLOR Yellow (Yellow); GLUCOSE Negative (Negative); KETONE Negative (Negative); LEUKO ESTERASE Trace (Negative); NITRITE Negative (Negative); PH 6.5 (4.5-8.0); SPECIFIC GRAVITY <= 1.005 (1.001-1.030); UROBILINOGEN 0.2 E.U./dl (0.0-1.0)
[2023-08-10 10:43] LABS: BACTERIA TRACE
[2023-08-10 10:46] LABS: ALKALINE PHOSPHATASE 84 U/L (46-116); BUN 12 mg/dl (9-23); CHLORIDE 105 mmol/L (98-107); CHOLESTEROL 198 mg/dL (<200); CPK 96 U/L (34-171); GAMMA GLUTAMYL TRANSPEPTIDASE 26 U/L (0-73); LDL CHOLESTEROL 118 mg/dL (9-159); POTASSIUM 4.1 mmol/L (3.4-5.1); SGPT/ALT 19 U/L (5-49); T3 UPTAKE 29.7 % (22.4-36.7); THYROXINE (T4) TOTAL 4.9 ug/dl (4.5-10.9); TOTAL PROTEIN 7.4 gm/dL (6.0-8.0); TRIGLYCERIDES 182 mg/dl (<150)
[2023-08-10 10:57] LABS: VITAMIN D, 25-HYDROXY 28.6 ng/mL (30-100)
== END ==
LOC: LAB 09:48
PROVIDERS: ATTEND Family Medicine
DX: R79.89 Other specified abnormal findings of blood chemistry (principal); R53.83 Other fatigue; R74.8 Abnormal levels of other serum enzymes; D64.9 Anemia, unspecified; E78.5 Hyperlipidemia, unspecified

== ENCOUNTER → 2024-02-12 | Outpatient (CLI) | payer MEDICARE, OTHER ==
[2024-02-12 13:46] LABS: BASO # 0.1 10*3/uL (0.0-0.1); BASO % 0.6 % (0.0-1.0); EOS # 0.1 10*3/uL (0.0-0.4); EOS % 1.3 % (1.0-4.0); HEMATOCRIT 39.1 % (37.0-47.0); MEAN CORPUSCULAR HGB 32.3 pg (27.0-31.0); MEAN CORPUSCULAR HGB CONC 33.2 g/dl (33.0-37.0); MEAN PLATELET VOLUME 10.4 fl (9.6-12.3); MONO # 0.9 10*3/uL (0.1-1.0); NEUT # 4.3 10*3/uL (2.3-7.9); NEUT % 55.2 % (47.0-73.0); PLATELET COUNT AUTOMATED 280 10*3/uL (130-400); RED BLOOD COUNT 4.03 10*6/uL (4.10-5.10); RED CELL DISTRI WIDTH 13.3 % (0-14.5); RETICULOCYTE % 1.54 % (0.50-2.50); WHITE BLOOD COUNT 7.8 10*3/uL (4.8-10.8)
[2024-02-12 14:04] LABS: BILIRUBIN Negative (Negative); BLOOD Negative (Negative); CLARITY Clear (Clear); COLOR Yellow (Yellow); GLUCOSE Negative (Negative); KETONE Negative (Negative); LEUKO ESTERASE Trace (Negative); NITRITE Negative (Negative); PH 6.5 (4.5-8.0); UROBILINOGEN 0.2 E.U./dl (0.0-1.0)
[2024-02-12 14:12] LABS: ALKALINE PHOSPHATASE 88 U/L (46-116); BUN 14 mg/dl (9-23); CHLORIDE 105 mmol/L (98-107); CHOLESTEROL 167 mg/dL (<200); GAMMA GLUTAMYL TRANSPEPTIDASE 28 U/L (0-73); LDL CHOLESTEROL 87 mg/dL (9-159); POTASSIUM 4.1 mmol/L (3.4-5.1); SGPT/ALT 17 U/L (5-49); TOTAL PROTEIN 7.4 gm/dL (6.0-8.0); TRIGLYCERIDES 147 mg/dl (<150)
[2024-02-12 14:20] LABS: BACTERIA TRACE
[2024-02-12 14:21] LABS: RBC 0-2 rbc/hpf (0-2)
== END | disposition home or self-care (01) ==
LOC: LAB 13:10
PROVIDERS: ATTEND Family Medicine
DX: R79.89 Other specified abnormal findings of blood chemistry (principal); R53.83 Other fatigue; E78.5 Hyperlipidemia, unspecified

== ENCOUNTER → 2024-08-11 | Outpatient (CLI) | payer MEDICARE, OTHER ==
[2024-08-11 13:13] LABS: BASO % 0.6 % (0.0-1.0); EOS # 0.1 10*3/uL (0.0-0.4); EOS % 1.4 % (1.0-4.0); HEMATOCRIT 36.8 % (37.0-47.0); MEAN CELL VOLUME 98.1 fl (81.0-99.0); MEAN CORPUSCULAR HGB CONC 32.6 g/dl (33.0-37.0); MEAN PLATELET VOLUME 10.5 fl (9.6-12.3); MONO # 0.8 10*3/uL (0.1-1.0); NEUT # 3.4 10*3/uL (2.3-7.9); NEUT % 54.4 % (47.0-73.0); PLATELET COUNT AUTOMATED 269 10*3/uL (130-400); RED BLOOD COUNT 3.75 10*6/uL (4.10-5.10); RED CELL DISTRI WIDTH 13.3 % (0-14.5); RETICULOCYTE % 1.48 % (0.50-2.50); WHITE BLOOD COUNT 6.2 10*3/uL (4.8-10.8)
[2024-08-11 13:17] LABS: BILIRUBIN Negative (Negative); BLOOD Negative (Negative); CLARITY Cloudy (Clear); COLOR Yellow (Yellow); GLUCOSE Negative (Negative); KETONE Negative (Negative); LEUKO ESTERASE 1+ (Negative); NITRITE Negative (Negative); PH 6.5 (4.5-8.0); SPECIFIC GRAVITY <= 1.005 (1.001-1.030); UROBILINOGEN 0.2 E.U./dl (0.0-1.0)
[2024-08-11 13:33] LABS: BACTERIA TRACE
[2024-08-11 13:38] LABS: ALKALINE PHOSPHATASE 82 U/L (46-116); BUN 12 mg/dl (9-23); CHLORIDE 108 mmol/L (98-107); CHOLESTEROL 161 mg/dL (<200); GAMMA GLUTAMYL TRANSPEPTIDASE 23 U/L (0-73); LDL CHOLESTEROL 87 mg/dL (9-159); POTASSIUM 3.9 mmol/L (3.4-5.1); SGPT/ALT 17 U/L (5-49); TOTAL PROTEIN 7.1 gm/dL (6.0-8.0); TRIGLYCERIDES 85 mg/dl (<150)
[2024-08-11 13:41] LABS: VITAMIN D, 25-HYDROXY 34.7 ng/mL (30-100)
== END | disposition home or self-care (01) ==
LOC: LAB 12:44
PROVIDERS: ATTEND Family Medicine
DX: E55.9 Vitamin D deficiency, unspecified (principal); R79.89 Other specified abnormal findings of blood chemistry; R53.83 Other fatigue; R74.8 Abnormal levels of other serum enzymes

== ENCOUNTER → 2025-02-07 | Outpatient (CLI) | payer MEDICARE, OTHER ==
[2025-02-07 09:22] LABS: BASO # 0.1 10*3/uL (0.0-0.1); BASO % 0.9 % (0.0-1.0); EOS # 0.1 10*3/uL (0.0-0.4); EOS % 1.7 % (1.0-4.0); MEAN CELL VOLUME 96.5 fl (81.0-99.0); MEAN CORPUSCULAR HGB 32.3 pg (27.0-31.0); MEAN PLATELET VOLUME 10.7 fl (9.6-12.3); MONO # 1.0 10*3/uL (0.1-1.0); MONO % 12.6 % (3.0-9.0); NEUT # 5.0 10*3/uL (2.3-7.9); NEUT % 60.9 % (47.0-73.0); NUCLEATED RED BLOOD CELL 0.0 % (0.0-0.0); NUCLEATED RED BLOOD CELL 0.0 10*3/uL (0.0-0.0); PLATELET COUNT AUTOMATED 295 10*3/uL (130-400); RED CELL DISTRI WIDTH 13.2 % (0-14.5); RETICULOCYTE % 1.67 % (0.50-2.50)
[2025-02-07 09:33] LABS: BILIRUBIN Negative (Negative); BLOOD Negative (Negative); CLARITY Clear (Clear); COLOR Yellow (Yellow); KETONE Negative (Negative); LEUKO ESTERASE Trace (Negative); NITRITE Negative (Negative); PH 6.0 (4.5-8.0); SPECIFIC GRAVITY <= 1.005 (1.001-1.030); UROBILINOGEN 0.2 E.U./dl (0.0-1.0)
[2025-02-07 09:47] LABS: BUN 17 mg/dl (9-23); GAMMA GLUTAMYL TRANSFERASE 21 U/L (0-38); LDL CHOLESTEROL 61 mg/dL (9-159); SGPT/ALT 14 U/L (5-49); T3 UPTAKE 35.5 % (22.4-36.7); THYROXINE (T4) TOTAL 4.9 ug/dl (4.5-10.9)
[2025-02-07 10:30] LABS: VITAMIN D, 25-HYDROXY 29.6 ng/mL (30-100)
== END | disposition home or self-care (01) ==
LOC: LAB 08:37
PROVIDERS: ATTEND Family Medicine
DX: E78.5 Hyperlipidemia, unspecified (principal); R79.89 Other specified abnormal findings of blood chemistry; R53.83 Other fatigue; E55.9 Vitamin D deficiency, unspecified; R74.8 Abnormal levels of other serum enzymes